=== PATIENT | female | born 1950 | race Asian ===

== ENCOUNTER → 2019-01-09 | Outpatient (CLI) | payer MEDICARE ==
--- NOTE | 2019-01-09 12:42 | CARD ---
MR#: [id number] Date of Study: 01/09/2019 Ordering Physician: SUNNI CARTER, Referring Physician: SUNNI CARTER, Tech: Karey Resendez APPROVED REPORT EXAM: Two-dimensional and M-mode echocardiogram with Doppler and color Doppler. Other Information Quality : AverageHR: 78bpm INDICATION Cardiac Disease: CAD RISK FACTORS Hypertension Hyperlipidemia Diabetes 2D DIMENSIONS RVDd1.9 (2.9-3.5cm)Left Atrium(2D)2.5 (1.6-4.0cm) IVSd1.0 (0.7-1.1cm)Aortic Root(2D)2.4 (2.0-3.7cm) LVDd3.5 (3.9-5.9cm)LVOT Diameter1.8 (1.8-2.4cm) PWd1.0 (0.7-1.1cm)LVDs1.6 (2.5-4.0cm) FS (%) 52.7 %SV42.6 ml LVEF(%)84.6 (>50%) Aortic Valve AoV Peak Jose Ramon.145.9cm/sAoV VTI25.0cm AO Peak GR.8.5mmHgLVOT Peak Jose Ramon.105.0cm/s LVOT VTI 21.71cmAO Mean GR.4mmHg ASHA (VMAX)1.17nr2IGJ (VTI)2.29cm2 Mitral Valve MV E Oohctvmr20.4cm/sMV DECEL [id number] MV A Sbsmyvsk786.1cm/sMV JSF79th E/A Ratio0.6MVA (PHT)3.17cm2 TDI E/Lateral E'9.4E/Medial E'13.7 Pulmonary Valve PV Peak Fkjvclvk985.3cm/sPV Peak Grad.6mmHg Tricuspid Valve TR P. Ohijddmj304ds/sRAP [id number] TR Peak Gr.09fxNpVNXJ49prJh Pulmonary Vein S1 Haeypuif01.0cm/sD2 Cukgdglj13.3cm/s PVa isnmdjpb061ffoh LEFT VENTRICLE The left ventricle is normal size. There is normal left ventricular wall thickness. The left ventricu lar systolic function is normal and the ejection fraction is within normal range. The Ejection Fracti on is 65-70%. There is normal LV segmental wall motion. Transmitral Doppler flow pattern is Grade I-a bnormal relaxation pattern. RIGHT VENTRICLE The right ventricle is normal size. There is normal right ventricular wall thickness. The right ventr icular systolic function is normal. ATRIA The left atrium size is normal. The right atrium size is normal. The interatrial septum is intact wit h no evidence for an atrial septal defect or patent foramen ovale as noted on 2-D or Doppler imaging. AORTIC VALVE The aortic valve is normal in structure and function. Doppler and Color Flow revealed trace aortic re gurgitation. There is no significant aortic valvular stenosis. MITRAL VALVE The mitral valve is normal in structure and function. There is no evidence of mitral valve prolapse. There is no mitral valve stenosis. Doppler and Color Flow revealed no mitral valve regurgitation note d. TRICUSPID VALVE The tricuspid valve is normal in structure and function. Doppler and Color Flow revealed trace tricus pid regurgitation with an estimated PAP of 31 mmHg. There is no tricuspid valve stenosis. PULMONIC VALVE The pulmonic valve is not well visualized. Doppler and Color Flow revealed no pulmonic valvular regur gitation. There is no pulmonic valvular stenosis. GREAT VESSELS The aortic root is normal in size. The IVC is normal in size and collapses >50% with inspiration. PERICARDIAL EFFUSION There is no evidence of significant pericardial effusion. Critical Notification Critical Value: No <Conclusion> The left ventricular systolic function is normal and the ejection fraction is within normal range. Th e Ejection Fraction is 65-70%. There is normal LV segmental wall motion. Signed by : Sunni Carter, Electronically Approved : 01/09/2019 12:42:23
== END | disposition home or self-care (01) ==
LOC: ECHO 09:38
PROVIDERS: ATTEND Internal Medicine Cardiovascular Disease
DX: I25.10 Atherosclerotic heart disease of native coronary artery without angina pectoris (principal)
CPT/HCPCS: 93306